=== PATIENT | male | born 1980 | race Caucasian/White ===

== ENCOUNTER 2020-04-11 02:47 | Emergency (ER) | payer SELFPAY ==
[2020-04-11] MEDS ORDERED: Sodium Chloride 0.9% 1,000 ML IV ONE (03:13)
[2020-04-11] MEDS ORDERED: Ketorolac 30 MG/ML SDV IVPUSH ONE (03:13)
[2020-04-11] MEDS ORDERED: Cyclobenzaprine 10 MG Tab PO ONE (03:15)
--- NOTE | 2020-04-11 03:20 | EDM.PDOC ---
ED HPI GENERAL MEDICAL PROBLEM - General Chief Complaint: Chest Pain Stated Complaint: CHEST PAIN;BACK PAIN Time Seen by Provider: 04/11/20 03:00 Source of Information: Reports: Patient History Limitations: Reports: No Limitations - History of Present Illness INITIAL COMMENTS - FREE TEXT/NARRATIVE: 40 yo gentleman on Chronic Narotics presenting to the ER with severe upper back pain as well as chest pain that started about an hour ago. Rates pain as 10/10. Describes it as sharp constant pain with no obvious aggravating or relieving factors. No SOB, Cough or abdominal pain. Presented to the ER due to worsening symptoms Onset: Today Onset Date: 04/11/20 Duration: Getting Worse Quality: Reports: Sharp Severity: Severe Worsens with: Reports: None Associated Symptoms: Reports: No Other Symptoms chest and back Pain Score (Numeric/FACES): 10 - Related Data Allergies Allergy/AdvReac Type Severity Reaction Status Date / Time Penicillins Allergy Hives Verified 04/11/20 03:04 Home Meds: Home Meds Buprenorphine [Subutex] 1 tab SL ASDIRECTED 04/11/20 [History] Past Medical History - Past Health History Medical/Surgical History: Denies Medical/Surgical History Musculoskeletal History: Reports: Other (See Below) Other Musculoskeletal History: states that he has back issues. Psychiatric History: Reports: Depression Social & Family History - Family History Family Medical History: No Pertinent Family History ED ROS GENERAL - Review of Systems Review Of Systems: See Below Constitutional: Reports: No Symptoms HEENT: Reports: No Symptoms Respiratory: Reports: No Symptoms Cardiovascular: Reports: Chest Pain Endocrine: Reports: No Symptoms GI/Abdominal: Reports: No Symptoms : Reports: No Symptoms Musculoskeletal: Reports: Back Pain Skin: Reports: No Symptoms Neurological: Reports: No Symptoms Psychiatric: Reports: No Symptoms Hematologic/Lymphatic: Reports: No Symptoms Immunologic: Reports: No Symptoms ED EXAM, GENERAL - Physical Exam Exam: See Below Exam Limited By: No Limitations General Appearance: Alert, WD/WN, No Apparent Distress Eye Exam: Bilateral Eye: PERRL Ear Exam: Bilateral Ear: Auricle Normal, Canal Normal Nose: Normal Inspection, Normal Mucosa Throat/Mouth: Normal Inspection, Normal Lips, Normal Teeth Head: Atraumatic, Normocephalic Respiratory/Chest: No Respiratory Distress, Lungs Clear, Normal Breath Sounds Cardiovascular: Normal Peripheral Pulses, Regular Rate, Rhythm, No Edema GI/Abdominal: Normal Bowel Sounds, Soft, Non-Tender, No Organomegaly Back Exam: Normal Inspection, Paraspinal Tenderness (Thoracic spine) Extremities: Normal Inspection, Normal Range of Motion, Normal Capillary Refill Neurological: Alert, Oriented, CN II-XII Intact Psychiatric: Normal Affect, Normal Mood Skin Exam: Warm, Dry, Intact Lymphatic: No Adenopathy Course - Vital Signs Last Recorded V/S: Last Vital Signs Temp 36.4 C 04/11/20 03:00 Pulse 69 04/11/20 03:00 Resp 17 04/11/20 03:00 BP 106/75 04/11/20 03:00 Pulse Ox 100 04/11/20 03:00 - Orders/Labs/Meds Orders: Active Orders 24 hr Category Date Time Status EKG Documentation Completion [RC] ASDIRECTED Care 04/11/20 03:43 Active Thoracic Spine wo Cont [CT] Stat Exams 04/11/20 03:14 Taken EKG 12 Lead [EK] Routine Ther 04/11/20 03:43 Ordered Labs: Laboratory Tests 04/11/20 04/11/20 04/11/20 Range/Units 03:25 03:25 03:25 WBC 6.3 (3.2-10.1) x10-3/uL RBC 4.94 (3.90-5.90) x10(6)uL Hgb 14.6 (12.9-17.7) g/dL Hct 44.5 (38.3-50.1) % MCV 90.1 (80.8-98.7) fL MCH 29.6 (27.0-33.3) pg MCHC 32.9 (28.7-35.3) g/dL RDW 13.1 (12.4-15.0) % Plt Count 209 (117-477) x10(3)uL MPV 8.2 (6.7-11.0) fL Neut % (Auto) 40.7 (40.3-71.8) % Lymph % (Auto) 47.5 H (15.8-45.3) % [place] % (Auto) 7.9 (5.5-15.2) % Eos % (Auto) 3.2 (0.1-6.8) % Baso % (Auto) 0.7 (0.3-3.8) % Neut # (Auto) 2.6 (1.7-6.9) x10-3/uL Lymph # (Auto) 3.0 (0.5-4.5) x10-3/uL [place] # (Auto) 0.5 (0.0-1.2) x10-3/uL Eos # (Auto) 0.2 (0.0-0.6) x10-3/uL Baso # (Auto) 0.0 (0.0-0.3) x10-3/uL Sodium 139 (135-145) mmol/L Potassium 3.8 (3.5-5.3) mmol/L Chloride 102 (100-110) mmol/L Carbon Dioxide 33 H (21-32) mmol/L BUN 17 (7-18) mg/dL Creatinine 0.9 (0.70-1.30) mg/dL Est Cr Clr Drug Dosing TNP Estimated GFR (MDRD) > 60 (>60) BUN/Creatinine Ratio 18.9 (9-20) Glucose 100 (80-116) mg/dL Calcium 8.4 L (8.6-10.2) mg/dL Total Bilirubin 0.3 (0.1-1.3) mg/dL AST 33 H (5-25) IU/L ALT 48 H (12-36) U/L Alkaline Phosphatase 81 (56-112) IU/L Troponin I 5.9 (4.0-60.3) pg/mL Total Protein 6.7 (6.0-8.0) g/dL Albumin 3.7 (3.5-5.2) g/dL Globulin 3.0 g/dL Albumin/Globulin Ratio 1.2 Meds: Medications Discontinued Medications Generic Name Dose Route Start Last Admin Trade Name Freq PRN Reason Stop Dose Admin Cyclobenzaprine HCl 10 mg 04/11/20 03:15 04/11/20 03:26 Flexeril PO 04/11/20 03:16 10 mg ONETIME ONE Administration Dexamethasone 4 mg 04/11/20 03:22 04/11/20 03:26 Dexamethasone PO 04/11/20 03:23 4 mg ONETIME ONE Administration Sodium Chloride 1,000 mls @ 1,000 mls/hr 04/11/20 03:13 04/11/20 03:27 Normal Saline IV 04/11/20 04:12 1,000 mls/hr .BOLUS ONE Administration Ketorolac Tromethamine 30 mg 04/11/20 03:13 04/11/20 03:26 Toradol IVPUSH 04/11/20 03:14 30 mg ONETIME ONE Administration Departure - Departure Time of Disposition: 05:47 Disposition: Home, Self-Care 01 Condition: Good Clinical Impression: Back pain, Chest pain, non-cardiac Instructions: Nonspecific Chest Pain, Adult, [id number], Back Exercises, [id number], Chronic Back Pain, [id number] Referrals: PCP,None [Primary Care Provider] - Forms: ED Department Discharge Additional Instructions: Follow with PCP Return if symptoms worsen Call your Physician or Return to Emergency Department if: * Your condition worsens in any way. * You develop fever greater than 100.4. * You have vomitting that does not stop with medications. * You have pain that is not controlled with medications. Sepsis Event Note (ED) - Focused Exam Vital Signs: Vital Signs Temp Pulse Resp BP Pulse Ox 04/11/20 03:00 36.4 C 69 17 106/75 100 - My Orders Last 24 Hours: My Active Orders 04/11/20 03:14 Thoracic Spine wo Cont [CT] Stat 04/11/20 03:43 EKG Documentation Completion [RC] ASDIRECTED EKG 12 Lead [EK] Routine - Assessment/Plan Last 24 Hours: My Active Orders 04/11/20 03:14 Thoracic Spine wo Cont [CT] Stat 04/11/20 03:43 EKG Documentation Completion [RC] ASDIRECTED EKG 12 Lead [EK] Routine
[2020-04-11] MEDS ORDERED: Dexamethasone 4 MG Tab PO ONE (03:22)
[2020-04-11 03:49] VITALS: BP 106/75; PULSE 69
== END 2020-04-11 06:04 | disposition home or self-care (01) ==
LOC: FB.ED 02:47
DX: M54.6 Pain in thoracic spine (principal); R07.89 Other chest pain; Z88.0 Allergy status to penicillin
CPT/HCPCS: 36415; 72128; 80053; 84484; 85025; 93005; 96374; 99284; 99285-25; A9270-GY; J1885; J7030; J8540

== ENCOUNTER 2020-05-10 22:41 | Emergency (ER) | payer SELFPAY ==
[2020-05-10 23:05] VITALS: BP 102/52; PULSE 95
[2020-05-10] MEDS ORDERED: Cyclobenzaprine 10 MG Tab PO ONE (23:17)
[2020-05-10] MEDS ORDERED: Ketorolac 30 MG/ML SDV IVPUSH ONE (23:17)
[2020-05-10] MEDS ORDERED: Ondansetron 4 MG Tab.DIS PO STA (23:33)
--- NOTE | 2020-05-10 23:55 | EDM.PDOC ---
ED HPI GENERAL MEDICAL PROBLEM - General Chief Complaint: Back Pain or Injury Stated Complaint: PAIN Time Seen by Provider: 05/10/20 23:00 Source of Information: Reports: Patient History Limitations: Reports: No Limitations - History of Present Illness INITIAL COMMENTS - FREE TEXT/NARRATIVE: Patient presented to the ED because of an upper back pain. He has a history of upper back pain. He took his subutex this morning without significant relief. His pain is 10/10 and worse with movement but he is able to get up from bed and walk around while in the ED. back Pain Score (Numeric/FACES): 10 - Related Data Allergies Allergy/AdvReac Type Severity Reaction Status Date / Time Penicillins Allergy Hives Verified 05/10/20 23:03 Home Meds: Home Meds Buprenorphine [Subutex] 1 tab SL ASDIRECTED 04/11/20 [History] Cyclobenzaprine [Flexeril] 10 mg PO TID PRN #30 tab 05/10/20 [Rx] Ibuprofen 800 mg PO TID PRN #30 tablet 05/10/20 [Rx] Past Medical History - Past Health History Medical/Surgical History: Denies Medical/Surgical History HEENT History: Reports: Other (See Below) Other HEENT History: poor dental hygiene Respiratory History: Reports: Other (See Below) Other Respiratory History: chronic smoker. Musculoskeletal History: Reports: Other (See Below) Other Musculoskeletal History: states that he has back issues that he takes Buprenoprhrine for it. Psychiatric History: Reports: Depression, Other (See Below) Other Psychiatric History: hx drug user abuse, states that he was a previous user. Social & Family History - Family History Family Medical History: No Pertinent Family History ED ROS GENERAL - Review of Systems Review Of Systems: See Below Constitutional: Reports: No Symptoms HEENT: Reports: No Symptoms Respiratory: Reports: No Symptoms Cardiovascular: Reports: No Symptoms Endocrine: Reports: No Symptoms GI/Abdominal: Reports: Nausea Musculoskeletal: Reports: Back Pain Skin: Reports: No Symptoms ED EXAM, UPPER BACK/NECK PAIN - Physical Exam Exam: See Below Exam Limited By: No Limitations General Appearance: Alert, No Apparent Distress Ears Exam: Normal External Exam, Normal Canal, Hearing Grossly Normal Nose Exam: Normal Inspection, Normal Mucousa, No Blood Throat/Mouth Exam: Normal Inspection, Normal Lips, Normal Oropharynx Head Exam: Atraumatic, Normocephalic Neck Exam: Non-Tender, Full Range of Motion, Normal Alignment, Normal Inspection Cardiovascular/Respiratory: Regular Rate, Rhythm, No M/R/G, Normal Peripheral Pulses, No JVD, Normal Breath Sounds GI/Abdominal: Normal Bowel Sounds, Soft, Non-Tender, No Organomegaly, No Distention, No Abnormal Bruit Back Exam: Normal Inspection, Muscle Spasm, Paraspinal Tenderness Extremities: Normal Inspection, Normal Range of Motion, Non-Tender, No Pedal Edema, Normal Capillary Refill Course - Vital Signs Text/Narrative:: Toradol 30 mg IM Zofran ODT 4 mg Flexeril 10 mg PO x1 Ibuprofen 800 mg po x1 Tylenol 1000 mg po x1 Last Recorded V/S: Last Vital Signs Temp 35.9 C L 05/10/20 22:45 Pulse 95 05/10/20 22:45 Resp 17 05/10/20 22:45 BP 102/52 L 05/10/20 22:45 Pulse Ox 100 05/10/20 22:45 - Orders/Labs/Meds Meds: Medications Discontinued Medications Generic Name Dose Route Start Last Admin Trade Name Freq PRN Reason Stop Dose Admin Acetaminophen 1,000 mg 05/11/20 00:00 05/11/20 00:07 Tylenol Extra Strength PO 05/11/20 00:01 1,000 mg NOW STA Administration Cyclobenzaprine HCl 10 mg 05/10/20 23:17 05/10/20 23:27 Flexeril PO 05/10/20 23:18 10 mg ONETIME ONE Administration Ibuprofen 800 mg 05/11/20 00:00 05/11/20 00:07 Motrin PO 05/11/20 00:01 800 mg NOW STA Administration Ketorolac Tromethamine 30 mg 05/10/20 23:17 05/10/20 23:28 Toradol IVPUSH 05/10/20 23:18 30 mg ONETIME ONE Administration Ondansetron HCl 4 mg 05/10/20 23:33 05/10/20 23:36 Zofran Odt PO 05/10/20 23:34 4 mg NOW STA Administration Departure - Departure Time of Disposition: 00:30 Disposition: Home, Self-Care 01 Condition: Good Clinical Impression: Chronic back pain - Discharge Information Prescriptions: Cyclobenzaprine [Flexeril] 10 mg PO TID PRN #30 tab PRN Reason: Spasms Ibuprofen 800 mg PO TID PRN #30 tablet PRN Reason: Pain Instructions: Chronic Back Pain, [id number] Referrals: PCP,None [Primary Care Provider] - Forms: ED Department Discharge Additional Instructions: Please read discharge instructions on Chronic back pain Take ibuprofen 800 mg and tylenol 1000 mg, flexeril 10 3 times daily as needed for pain and muscle spasm. Take the medicines all at the same time for better pain relief. Sepsis Event Note (ED) - Evaluation Sepsis Screening Result: No Definite Risk - Focused Exam Vital Signs: Vital Signs Temp Pulse Resp BP Pulse Ox 05/10/20 22:45 35.9 C L 95 17 102/52 L 100
[2020-05-11] MEDS ORDERED: Acetaminophen 500 MG Tab PO STA
[2020-05-11] MEDS ORDERED: Ibuprofen 800 MG Tab PO STA
== END 2020-05-11 00:50 | disposition home or self-care (01) ==
LOC: FB.ED 22:41
DX: G89.29 Other chronic pain (principal); M54.6 Pain in thoracic spine; F17.200 Nicotine dependence, unspecified, uncomplicated; Z88.0 Allergy status to penicillin
CPT/HCPCS: 96374; 99283; 99283-25; A9270-GY; J1885

== ENCOUNTER 2021-05-24 08:40 | Emergency (ER) | payer BC ==
[2021-05-24] MEDS ORDERED: Sodium Chloride 0.9% 10 ML Syringe FLUSH PRN (08:51)
[2021-05-24] MEDS ORDERED: Ketorolac 30 MG/ML SDV IVPUSH ONE (08:59)
[2021-05-24 09:05] VITALS: BP 136/87; PULSE 51
[2021-05-24] MEDS ORDERED: Acetaminophen 500 MG Tab PO ONE (09:08)
== END 2021-05-24 11:34 | disposition home or self-care (01) ==
LOC: FB.ED 08:40
DX: R07.9 Chest pain, unspecified (principal); M54.9 Dorsalgia, unspecified; Z88.0 Allergy status to penicillin
CPT/HCPCS: 36415; 74018; 80048; 80307; 84484; 85027; 93005; 96374; 99285-25; A9270-GY; J1885